=== PATIENT | male | born 1970 | race Caucasian/White ===

== ENCOUNTER → 2017-08-02 | Outpatient (CLI) | payer OTHER ==
--- NOTE | 2017-08-02 14:42 | US ---
EXAMINATION TYPE: US scrotum with doppler. Grayscale and color Doppler Duplex imaging performed of mychal marie scrotum. DATE OF EXAM: 08/02/2017 COMPARISON: NONE CLINICAL HISTORY: N50.9 Testicular Pain. Pain bilaterally EXAM MEASUREMENTS: TESTICLES: Right Testicle: 4.0 x 2.0 x 2.9 cm Left Testicle: 4.0 x 1.8 x 3.4 cm EPIDIDYMIS HEAD: Right Epididymis: 0.9 cm Left Epididymis: 1.1 cm Doppler performed to assess for testicular vascularity; good bilateral color flow and waveforms are s een. Presence of hydroceles: fluid collection lateral right testicle = 3.1cm and medial left testicle = 3 .3cm Presence of varicoceles: yes, lateral to left testicle Cystic area left epididymis = 0.3cm Prominent vessels lateral to left testicle are identified Comparison view shows symmetric blood flow to both testicles without abnormal skin thickening bilater ally. IMPRESSION: Symmetric blood flow to both testicles is identified.
== END | disposition home or self-care (01) ==
LOC: RADUSWWP 13:32
PROVIDERS: ATTEND Family Medicine
DX: N50.89 Other specified disorders of the male genital organs (principal)
CPT/HCPCS: 76870; 93975